=== PATIENT | female | born 1960 | race African-American/Black ===

== ENCOUNTER 2017-01-06 17:31 | Emergency (ER) | payer BC, SELFPAY ==
[~2017-01-06 17:31] MED LIST: Benzonatate 100 MG CAP ONE; Dexamethasone 4 MG TAB ONE
== END 2017-01-06 18:29 | disposition home or self-care (01) ==
LOC: MADERS 17:31
DX: J20.9 Acute bronchitis, unspecified (principal); I10 Essential (primary) hypertension; F41.9 Anxiety disorder, unspecified
CPT/HCPCS: 99283; J8540

== ENCOUNTER 2022-11-12 18:28 | Emergency (ER) | payer BC, SELFPAY ==
[2022-11-12] MEDS ORDERED: Ketorolac Tromethamine 60 MG/2 ML VIAL ONE (19:04)
== END 2022-11-12 19:40 | disposition home or self-care (01) ==
LOC: MADERS 18:28
DX: M25.562 Pain in left knee (principal); I10 Essential (primary) hypertension; E66.9 Obesity, unspecified; Z79.899 Other long term (current) drug therapy
CPT/HCPCS: 96372; J1885

== ENCOUNTER 2023-08-22 13:16 | Outpatient (CLI) | payer OTHER | END 2023-08-22 13:17 | disposition home or self-care (01) | LOC: MADLAB 13:16 | PROVIDERS: ATTEND Family Medicine | DX: G47.33 Obstructive sleep apnea (adult) (pediatric) (principal); R06.02 Shortness of breath; M43.16 Spondylolisthesis, lumbar region; M47.816 Spondylosis without myelopathy or radiculopathy, lumbar region | CPT/HCPCS: 72110 ==

== ENCOUNTER 2024-01-08 10:36 | Outpatient (CLI) | payer OTHER | END 2024-01-08 10:37 | disposition home or self-care (01) | LOC: MADRAD 10:36 | PROVIDERS: ATTEND Internal Medicine | DX: I73.9 Peripheral vascular disease, unspecified (principal); M47.816 Spondylosis without myelopathy or radiculopathy, lumbar region | CPT/HCPCS: 72120 ==